=== PATIENT | female | born 1960 | race African-American/Black ===

== ENCOUNTER 2016-07-30 10:12 | Day surgery (SDC) | payer MEDICARE, OTHER ==
[~2016-07-30 10:12] MED LIST: PROPOFOL INJ 200 MG/20 ML VIAL IV ONE
[2016-07-30] MEDS ORDERED: PROPOFOL INJ 200 MG/20 ML VIAL IV ONE (10:58)
[2016-07-30 11:47] VITALS: BP 133/82
--- NOTE | 2016-07-30 13:17 | Operative Report ---
Operative Report DATE OF SURGERY: 07/30/16 Operative Report: The risks, benefits and alternatives of the procedure including risks of bleeding, perforation requiring surgery are explained to the patient detail and informed consent is obtained. Patient is taken back to the endoscopy suite. Timeout is called. Propofol medications administered. A rectal examination was done which did not reveal any masses, tears or fissures. An Olympus videoscope was inserted into the patient's rectum. Keeping the lumen in site at all times the scope was then gradually advanced all the way to the cecum. The cecum as identified by the usual anatomical landmarks of the ileocecal valve as well as the appendiceal office. Photodocumentation is obtained. Prep was reasonably good. The scope is then sequentially pulled back via the rest segments of the colon including the ascending colon, hepatic flexure, transverse colon, splenic flexure, descending colon and rectosigmoid portions of the colon. Retroflexion maneuvers performed. PREOPERATIVE DIAGNOSIS: Colorectal cancer screening. POSTOPERATIVE DIAGNOSIS: 6 polyps. 2 noted in the area of the proximal transverse colon. Another 4 noted in the rectosigmoid area. All of which are removed via snare polypectomy and retrieved. Diverticulosis. Internal hemorrhoids OPERATION: Colonoscopy with snare polypectomy SURGEON: TREVOR MAN ANESTHESIA: LMAC TISSUE REMOVED OR ALTERED: All 6 polyps removed were retrieved. COMPLICATIONS: None. ESTIMATED BLOOD LOSS: none. INTRAOPERATIVE FINDINGS: As above. PROCEDURE: Patient tolerated the procedure well. No immediate postprocedure complications are noted. Patient is discharged in good condition. Date of discharge 07/30/2016. Discharge diet: Regular. Discharge activity: Regular. Surveillance colonoscopy in 3 years. Patient is instructed to go the emergency room all call the office should there be any further problems or questions. Patient does have a 2-3 week follow-up to discuss findings.
== END 2016-07-30 11:50 | disposition home or self-care (01) ==
LOC: END 10:12
PROVIDERS: ATTEND Internal Medicine Gastroenterology
PROC: 0DBL8ZX Excision of Transverse Colon, Via Natural or Artificial Opening Endoscopic, Diagnostic (ICD-10-PCS; 2016-07-30)
PROC: 0DBN8ZX Excision of Sigmoid Colon, Via Natural or Artificial Opening Endoscopic, Diagnostic (ICD-10-PCS; principal; 2016-07-30 13:00)
DX: Z12.11 Encounter for screening for malignant neoplasm of colon (principal); D12.3 Benign neoplasm of transverse colon; D12.7 Benign neoplasm of rectosigmoid junction; I10 Essential (primary) hypertension; K64.8 Other hemorrhoids; K57.30 Diverticulosis of large intestine without perforation or abscess without bleeding; G35 Multiple sclerosis; E66.9 Obesity, unspecified
CPT/HCPCS: 45385; 88305 ×2; J2704; 810

== ENCOUNTER → 2017-11-25 | Outpatient (CLI) | payer MEDICARE, OTHER ==
--- NOTE | 2017-11-26 16:59 | RADIOLOGY REPORT (SQ) ---
EXAM DESCRIPTION: U/S NON-OB PELVIS W/O DOP COMPLETED DATE/TIME: 11/25/2017 9:43 am REASON FOR STUDY: LLQ ABD TENDERNESS W/O REBOUND TENDERNESS (R10.814) R10.814 LEFT LOWER QUADRANT A BDOMINAL TENDERNESS COMPARISON: None. EXAM PARAMETERS: TECHNIQUE: Dynamic and static grayscale images acquired of the pelvis via transabdo lazara and transvaginal approach and recorded on PACS. Additional selected color Doppler and spectral images recorded. LIMITATIONS: None. FINDINGS: UTERUS: Prior hysterectomy. RIGHT OVARY: Not visualized. LEFT OVARY: Not visualized. FREE FLUID: None noted. OTHER: The patient states that she has been postmenopausal for many years. IMPRESSION: 1 Prior hysterectomy. 2 Neither ovary is visualized sonographically. TECHNICAL DOCUMENTATION: JOB ID: [id number] [email or web address]- All Rights Reserved Reading location - IP/workstation name: [email or web address]
== END ==
LOC: RAD 08:55
PROVIDERS: ATTEND Physician Assistant
DX: R10.814 Left lower quadrant abdominal tenderness (principal); Z90.710 Acquired absence of both cervix and uterus
CPT/HCPCS: 76856

== ENCOUNTER → 2020-02-26 | Outpatient (CLI) | payer MEDICAID, MEDICARE | LOC: RAD 14:10 | PROVIDERS: ATTEND Otolaryngology | DX: J01.90 Acute sinusitis, unspecified (principal) | CPT/HCPCS: 70486 ==

== ENCOUNTER → 2020-02-26 | Outpatient (CLI) | payer MEDICARE, MEDICAID | LOC: OD 14:59 | PROVIDERS: ATTEND Otolaryngology | DX: J01.90 Acute sinusitis, unspecified (principal) | CPT/HCPCS: 36415; 82785; 86003 ==